=== PATIENT | male | born 1980 | race Caucasian/White ===

== ENCOUNTER 2017-02-21 22:57 | Emergency (ER) | payer SELFPAY ==
[~2017-02-21] VITALS: Ht 165.1 cm; Wt 99.0 kg
[2017-02-21 23:03] VITALS: Ht 165.1 cm; Wt 99.0 kg
[2017-02-22] MEDS ORDERED: DIPHTH/TET/ACEL PERTUSS (ADULT) 0.5 ML VIAL IM* ONE
[2017-02-22] MEDS ORDERED: HYDROCODONE/APAP (10/325) TAB PO ONE
--- NOTE | 2017-02-22 00:02 | ERD ---
ER Documentation Chief Complaint Date/Time DATE: 02/22/17 TIME: 00:01 Chief Complaint RIGHT THUMB LAC POSSIBLE F.B (GLASS) TO SITE HPI 37-year-old male presents to emergency department for complete of her right thumb laceration wound after accidentally getting hit by a glass while trying to open window. Patient described the pain as sharp pain, sixth less than scale , is worse upon touching the area, it was bleeding, it stopped immediately afterwards, patient feels some glass inside the laceration wound. Patient denies any numbness or tingling. Patient is able to move the joint of the right thumb without any restrictions. Patient denies any numbness or tingling. ROS All systems reviewed and are negative except as per history of present illness. Medications Home Meds Reported Medications [none] Unknown Strength No Conflict Check 02/22/17 Allergies Allergies: Coded Allergies: No Known Allergy (Unverified , 02/21/17) PMhx/Soc Medical and Surgical Hx: pt denies Medical Hx History of Surgery: Yes (gallbladder) Anesthesia Reaction: No Hx Alcohol Use: Yes Hx Substance Use: No Hx Tobacco Use: No Smoking Status: Never smoker FmHx Family History: No coronary disease, No diabetes, No other Physical Exam Vitals Vital Signs Date Time Temp Pulse Resp B/P Pulse Ox O2 Delivery O2 Flow Rate FiO2 02/21/17 23:03 98.7 85 18 142/87 97 Physical Exam GENERAL: The patient is well developed and appropriate for usual state of health, in no apparent distress. CHEST: Clear to auscultation bilaterally. There are no rales, wheezes or rhonchi. HEART: Regular rate and rhythm. No murmurs, clicks, rubs or gallops. No S3 or S4. ABDOMEN: Soft, nontender and nondistended. Good bowel sounds. No rebound or guarding. No gross peritonitis. No gross organomegaly or masses. No West sign or McBurney point tenderness. BACK: No midline or flank tenderness. EXTREMITIES: Equal pulses bilaterally. There is no peripheral clubbing, cyanosis or edema. No focal swelling or erythema. Full range of motion. Grossly neurovascularly intact. NEURO: Alert and oriented. Cranial nerves 2-12 intact. Motor strength in all 4 extremities with 5/5 strength. Sensation grossly intact. Normal speech and gait. SKIN: 3.5 cm laceration wound in the base of right thumb, extensor to the subcutaneous tissue, no tendon involvement, no visualized foreign body or palpable foreign body. There is no apparent rash or petechia. The skin is warm and dry. HEMATOLOGIC AND LYMPHATIC: There is no evidence of excessive bruising or lymphedema. No gross cervical, axillary, or inguinal lymphadenopathy. Results 24 hrs Current Medications Medications (Trade) Dose Ordered Sig/Tracey Route PRN Reason Start Time Stop Time Status Last Admin Dose Admin Diphtheria/ Tetanus/Acell Pertussis (Adacel) 0.5 ml ONCE ONCE IM* 02/22/17 00:00 02/22/17 00:01 DC 02/21/17 23:58 Acetaminophen/ Hydrocodone Bitart (Diboll (10325)) 1 tab ONCE ONCE PO 02/22/17 00:00 02/22/17 00:01 DC 02/21/17 23:57 Lidocaine (Xylocaine 2% (Mdv) 20 ml) 2 ml ONCE ONCE SC 02/22/17 00:30 02/22/17 00:31 DC Tdap was given to prevent tetanus. Patient tolerated medication well.Patient was given medication for pain here in emergency department, after treatment, patient verbalized feeling much better. Patient's pain is improved. PROCEDURE: XR Hand. CLINICAL INDICATION: Trauma. Laceration. Possible foreign body.. TECHNIQUE: Three views of the right hand were obtained. COMPARISON: No prior studies are available for comparison. FINDINGS: No fracture is identified. Joint relationships are maintained. Bone mineralization is within normal limits. Soft tissues are unremarkable. There is no radiopaque foreign body. IMPRESSION: Negative examination. No radiopaque foreign body. RPTAT: HMVK .Will Singh MD, Date Time Electronically viewed and signed by .Will Singh MD, on 02/22/2017 00:42 .K/ CC: MARYCARMEN SEGAL [employer] Procedures/MDM Procedure Note: After obtaining informed consent, the wound was irrigated with 250 ml of normal saline and cleaned with diluted betadine. Using aseptic technique, 3 ml of 1% lidocaine was injected on the subcutaneous tissue of the laceration wound for anesthetic. After the anesthetic, the wound was approximated using 8 interrupted sutures of 3.0 Prolene. After the procedure, the wound was well approximated. Patient tolerated procedure well. Bacitracin was applied on the area and a dry dressing. Medical Decision Making: Patient's pain is most likely consistent with a laceration wound affected area, no foreign body noted, no tendon involvement. There is no suspicion for neurovascular compromise. Patient has intact sensation and circulation of the affected extremity. There is low suspicion for septic arthritis. Patient does not have any fever. Radiology exams of the affected area does not show any fracture or dislocation. Disposition: Home. Patient is given prescription for ibuprofen for pain Keflex to prevent infection, Diboll for severe pain. Patient was advised to elevate the affected area and apply ice on affected area. Patient was advised that if symptoms are worse, numbness, tingling, high fever, unable to move joint, worsening symptoms, to return to emergency department immediately. Otherwise, patient is advised to follow up with the primary care doctor in 2 days for wound check, 7-10 days for suture removal Departure Diagnosis: Primary Impression: Thumb laceration Encounter type: initial encounter Laterality: right Qualified Code: S61.011A - Thumb laceration, right, initial encounter Condition: Stable Patient Instructions: Laceration, Hand Additional Instructions: Patient is given prescription for ibuprofen for pain Keflex to prevent infection , Diboll for severe pain. Patient was advised to elevate the affected area and apply ice on affected area. Patient was advised that if symptoms are worse, numbness, tingling, high fever, unable to move joint, worsening symptoms, to return to emergency department immediately. Otherwise, patient is advised to follow up with the primary care doctor in 2 days for wound check, 7-10 days for suture removal MARYCARMEN SEGAL NP Feb 22, 2017 00:02
[2017-02-22] MEDS ORDERED: LIDOCAINE 2% (MDV) 20 ML INJ SC ONE (00:30)
--- NOTE | 2017-02-22 00:42 | RADRPT ---
PROCEDURE: XR Hand. CLINICAL INDICATION: Trauma. Laceration. Possible foreign body.. TECHNIQUE: Three views of the right hand were obtained. COMPARISON: No prior studies are available for comparison. FINDINGS: No fracture is identified. Joint relationships are maintained. Bone mineralization is within halina l limits. Soft tissues are unremarkable. There is no radiopaque foreign body. IMPRESSION: Negative examination. No radiopaque foreign body. RPTAT: HMVK .Will Singh MD, Date Time Electronically viewed and signed by .Will Singh MD, on 02/22/2017 00:42 .K/
[2017-02-22] MEDS ORDERED: HYDR-906 PO (02:00)
[2017-02-22] MEDS ORDERED: IBUP-1542 PO (02:00)
[2017-02-22] MEDS ORDERED: CEPH-443 PO (02:00)
== END 2017-02-22 02:04 | disposition home or self-care (01) ==
LOC: FTE 22:57
DX: S61.011A Laceration without foreign body of right thumb without damage to nail, initial encounter (principal); W25.XXXA Contact with sharp glass, initial encounter; Y92.9 Unspecified place or not applicable; Z23 Encounter for immunization
CPT/HCPCS: 90471; 90715

== ENCOUNTER 2017-03-03 14:47 | Emergency (ER) | payer MEDICAID ==
[~2017-03-03] VITALS: Ht 172.7 cm; Wt 100.5 kg
[~2017-03-03 14:47] MED LIST: CEPH-443 PO; HYDR-906 PO; IBUP-1542 PO
[2017-03-03 14:49] VITALS: Ht 172.7 cm; Wt 100.5 kg
[2017-03-03 17:20] VITALS: TEMP 98
--- NOTE | 2017-03-03 17:20 | ERD ---
ER Documentation Chief Complaint Date/Time DATE: 03/03/17 TIME: 17:16 Chief Complaint SUTURE REMOVAL RIGHT HAND HPI 37-year-old male who is left-hand dominant comes in for suture removal from the right hand from laceration repair that was done 10 days ago. Patient states that he accidentally caused a laceration to his right hand from glass, was seen here. X-rays did not have any retained foreign body. Has not had any problems , erythema or drainage. Denies fevers or chills. ROS All systems reviewed and are negative except as per history of present illness. Medications Home Meds Active Scripts Hydrocodone/Acetaminophen (Coleman 5-325 Tablet) 1 Each Tablet, 1 TAB PO Q6H Y for sev, #20 TAB Prov:MARYCARMEN SEGAL NP 02/22/17 Cephalexin* (Keflex*) 500 Mg Capsule, 500 MG PO QID for 5 Days, CAP Prov:MARYCARMEN SEGAL NP 02/22/17 Ibuprofen* (Motrin*) 600 Mg Tab, 600 MG PO Q6H Y for PAIN AND OR ELEVATED TEMP, #30 TAB Prov:MARYCARMEN SEGAL NP 02/22/17 Reported Medications [none] Unknown Strength No Conflict Check 02/22/17 Allergies Allergies: Coded Allergies: No Known Allergy (Unverified , 02/21/17) PMhx/Soc History of Surgery: Yes (gallbladder) Anesthesia Reaction: No Hx Alcohol Use: Yes Hx Substance Use: No Hx Tobacco Use: No Physical Exam Vitals Vital Signs Date Time Temp Pulse Resp B/P Pulse Ox O2 Delivery O2 Flow Rate FiO2 03/03/17 14:49 98.2 68 18 168/84 98 Physical Exam General: Well-developed, well-nourished. The patient appears in no acute distress. HEENT: Head is normocephalic, atraumatic. No scleral icterus. Neck: Supple. Nontender. Lungs: Clear to auscultation. Normal air movement. Heart: Regular rate and rhythm. S1 and S2 are normal. No murmurs, gallops, or rubs. Abdomen: Nondistended. Extremities: Palmar aspect of the base of the right thumb has a 5 cm healed laceration with 8 simple interrupted sutures intact. There is no dehiscence, erythema or drainage. He is able to flex and extend at the base of the thumb as well as at the IP joint. Capillary refill less than 2 seconds. Neurologic: Alert and oriented 3. No focal deficits. Normal speech and gait. Skin: Normal turgor. No rash or lesions. Procedures/MDM Suture Removal by me: Sutures removed with tweezers and scissors without incident. Wound shows no evidence of infection, foreign body, neurologic injury, vascular injury, open joint or tendon laceration. Patient to follow up PRN. Departure Diagnosis: Primary Impression: Encounter for removal of sutures Condition: Good Patient Instructions: Suture Removal, No Complication MICHEL GOMES PA-C Mar 03, 2017 17:20
== END 2017-03-03 17:20 | disposition home or self-care (01) ==
LOC: FTE 14:47
DX: Z48.02 Encounter for removal of sutures (principal)
CPT/HCPCS: 99281